=== PATIENT | male | born 1945 | race Caucasian/White ===

== ENCOUNTER 2018-08-02 09:14 | Emergency (ER) | payer MEDICARE, OTHER ==
[~2018-08-02] VITALS: Ht 185.4 cm; Wt 79.4 kg
[~2018-08-02 09:14] MED LIST: HYDCHL25 PO
[2018-08-02] MEDS ORDERED: ATOR20 PO (10:20)
[2018-08-02] MEDS ORDERED: LOSA25 PO (10:20)
[2018-08-02] MEDS ORDERED: FLUO10 PO (10:20)
[2018-08-02] MEDS ORDERED: RIVASTIGMINE1 EAC2 TD (10:20)
[2018-08-02] MEDS ORDERED: Bisoprolol Fumar5 MG PO (10:20)
== END 2018-08-02 11:17 | disposition home or self-care (01) ==
LOC: ER 09:14
DX: R04.0 Epistaxis (principal); I10 Essential (primary) hypertension
CPT/HCPCS: 30901; 99283-25

== ENCOUNTER 2021-08-15 10:04 | Emergency (ER) | payer OTHER, MEDICARE ==
[~2021-08-15] VITALS: Ht 185.4 cm; Wt 68.0 kg
[~2021-08-15 10:04] MED LIST changes: +ATOR20 PO; +Bisoprolol Fumar5 MG PO; +FLUO10 PO; +LOSA25 PO; +RIVASTIGMINE1 EAC2 TD
[2021-08-15] MEDS ORDERED: SEROQUEL100 MG PO (10:42)
[2021-08-15] MEDS ORDERED: QUET100 PO (10:43)
== END 2021-08-15 13:02 | disposition home or self-care (01) ==
LOC: ER 10:04
DX: S80.01XA Contusion of right knee, initial encounter (principal); I10 Essential (primary) hypertension; Z86.73 Personal history of transient ischemic attack (TIA), and cerebral infarction without residual deficits; Z87.891 Personal history of nicotine dependence; Z79.899 Other long term (current) drug therapy; W01.0XXA Fall on same level from slipping, tripping and stumbling without subsequent striking against object, initial encounter
CPT/HCPCS: 73562-RT; 99283-25

== ENCOUNTER 2022-10-17 17:37 | Inpatient (IN) | payer MEDICARE, OTHER ==
[~2022-10-17] VITALS: Ht 182.9 cm; Wt 69.3 kg
[~2022-10-17 17:37] MED LIST changes: +QUET100 PO; +SEROQUEL100 MG PO
[2022-10-17 18:27] LABS: BASOPHILS ABSOLUTE AUTO 0.03 K/mm3 (0.00-0.23); BASOPHILS PERCENT AUTO 0 % (0-2); EOSINOPHILS PERCENT AUTO 0 % (0-6); Hematocrit 48.6 % (37.0-53.0); IMMATURE GRAN ABSOLUTE AUTO 0.04 K/mm3 (0.00-0.10); IMMATURE GRAN PERCENT AUTO 0 % (0-1); LYMPHOCYTES ABSOLUTE AUTO 0.48 K/mm3 (0.84-5.20); LYMPHOCYTES PERCENT AUTO 5 % (21-46); MONOCYTES ABSOLUTE AUTO 0.92 K/mm3 (0.16-1.47); MONOCYTES PERCENT AUTO 9 % (4-13); Mean Corpuscular HGB 28.8 pg (26.0-34.0); Mean Corpuscular HGB Conc 32.9 g/dL (31.5-36.5); Mean Corpuscular Volume 87 fL (80-100); Mean Platelet Volume 10.7 fL (9.1-12.4); NEUTROPHILS ABSOLUTE AUTO 8.66 K/mm3 (1.96-9.15); NEUTROPHILS PERCENT AUTO 86 % (41-73); Platelet Count 178 K/mm3 (150-400); RDW Coefficient Variation 13.5 % (11.7-14.2); RDW Standard Deviation 43.5 fL (35.1-46.3); Red Blood Cell Count 5.56 M/mm3 (4.30-5.90); White Blood Cell Count 10.13 K/mm3 (4.00-11.30)
[2022-10-17 18:38] LABS: International Normalized Ratio 1.05
[2022-10-17 18:56] LABS: Albumin, Blood 3.4 g/dL (3.4-5.0); Albumin/Globulin Ratio 0.8 (0.8-1.8); Bilirubin, Total 1.2 mg/dL (0.1-1.0); Bun/Creatinine Ratio 32.3 (12.0-20.0); Calcium, Blood 8.9 mg/dL (8.5-10.1); Creatinine, Blood 0.9 mg/dL (0.60-1.20); Total Protein, Blood 7.4 g/dL (6.4-8.2)
[2022-10-17 19:00] LABS: Base Excess Venous 5.2 mmol/L; Bicarbonate Venous 28.2 mmol/L (24.0-30.0); pH Blood Venous 7.44 (7.34-7.37)
[2022-10-17 19:05] LABS: Magnesium, Blood 2.1 mg/dL (1.6-2.4)
[2022-10-17 19:07] LABS: Thyroid Stimulating Hormone 1.66 uIU/mL (0.360-4.800)
[2022-10-17 19:16] LABS: Source, Urine Straight Cath
[2022-10-17 19:23] LABS: Appearance, Urine Clear (Clear); Bilirubin, Urine Neg (Neg); Blood, Urine 2+ (Neg); Color, Urine Amber (P-Yellow); Glucose Qualitative, Urine Neg (Neg); Ketones, Urine 3+ (Neg); Leukocyte Esterase, Urine Neg (Neg); Nitrite, Urine Neg (Neg); Protein, Urine 3+ (Neg); Specific Gravity, Urine 1.025 (1.003-1.022); Urobilinogen, Urine 2+ (Normal)
[2022-10-17 19:34] LABS: Amorphous Light (0-Heavy); Bacteria Few /hpf; Red Blood Cells, Urine 0-2 /hpf (0-2); Squamous Epithelial Cells Not Seen /hpf (Few); White Blood Cells, Urine 0-2 /hpf (0-5)
[2022-10-17 19:36] LABS: U Amphetamine Screen Not Detected; U Barbituate Screen Not Detected; U Benzodiazapine Screen Not Detected; U Buprenorphine Screen Not Detected; U Cannabinoids Screen Not Detected; U Cocaine Screen Not Detected; U Methadone Screen Not Detected; U Methamphetamine Screen Not Detected; U Opiates Screen Not Detected; U Oxycodone Screen Not Detected; U Phencyclidine Screen Not Detected; U Propoxyphene Screen Not Detected
[2022-10-17] MEDS ORDERED: Ketoconazole120 ML TOP (21:32)
[2022-10-17] MEDS ORDERED: PAXIL2010 PO (21:32)
[2022-10-17] MEDS ORDERED: PAXLOVID 150-11 EACH PO (21:33)
[2022-10-17] MEDS ORDERED: RISPERIDONE2 M9 PO (21:33)
[2022-10-17] MEDS ORDERED: [UNRECOGNIZED DRUG - OTHER] PO (21:34)
[2022-10-17 23:33] VITALS: BP 159/104
[2022-10-18] VITALS (7 sets, daily range): BP systolic 127–159; BP diastolic 89–113
[2022-10-18 01:14] LABS: Hemoglobin 14.8 g/dL (13.5-17.5); Mean Corpuscular HGB Conc 32.9 g/dL (31.5-36.5); Mean Corpuscular Volume 88 fL (80-100); Mean Platelet Volume 10.9 fL (9.1-12.4); Platelet Count 163 K/mm3 (150-400); RDW Coefficient Variation 13.5 % (11.7-14.2); RDW Standard Deviation 43.9 fL (35.1-46.3); White Blood Cell Count 9.57 K/mm3 (4.00-11.30)
[2022-10-18 01:44] LABS: Albumin, Blood 2.9 g/dL (3.4-5.0); Albumin/Globulin Ratio 0.8 (0.8-1.8); Bilirubin, Total 1.1 mg/dL (0.1-1.0); Calcium, Blood 8.4 mg/dL (8.5-10.1); Creatinine, Blood 0.8 mg/dL (0.60-1.20); Globulin, Blood 3.7 g/dL (2.2-4.0); Magnesium, Blood 1.9 mg/dL (1.6-2.4); Potassium, Blood 3.9 mmol/L (3.5-5.5); Total Protein, Blood 6.6 g/dL (6.4-8.2)
--- NOTE | 2022-10-18 05:58 | NUR ---
SHIFT SUMMARY 77 YR M ADMITTED ON 10/17/22 FOR COVID. DNR. PT IS NOT A&O AND HAS BEEN UNRESPONSIVE TO QUESTIONS OR STIMULI. HIS BREATHING IS LABORED AND LAST RR WAS 30. LUNGS SOUNDS ARE CRACKLY AND WHEEZY. RT WAS CALLED TO EVALUATE PT AND SUGGESTED A NASAL TRUMPET. ORDER WAS OBTAINED AND IT WAS PLACED BY RT. THIS SEEMS TO HAVE HELPED WITH EASE OF BREATHING. BP AND PULSE WERE ELEVATED AND HOSPITALIST WAS CONTACTED. PRN LOPRESSOR WAS GIVEN IV. PT IS INCONTINENT AND IS UNABLE TO USE THE CALL LIGHT FOR ASSISTANCE.
--- NOTE | 2022-10-18 07:30 | NUR ---
ASSUMED CARE OF PATIENT PATIENT RESTING IN BED, APPEARS TO BE SLEEPING. 2.5L O2 IN PALCE VIA NC IN PATIENTS MOUTH D/T MOUTH BREATHING, TO MAINTAIN SATS >94%. NASAL TRUMPET TO LEFT NARE. RESPIRATIONS APPROX 30/MIN CURRENTLY. PATIENT DOES DOES RESPOND TO VERBAL OR PAINFUL STIMULI. NO FAMILY AT BEDSIDE.
--- NOTE | 2022-10-18 09:00 | NUR ---
PATIENT OPENED EYES TO VERBAL STIMULI, NO RESPONSE, HAD BLANK/EMPTY STARE. O2 INCREASED TO 3L TO MAINTAIN O2 SATS >94% PER ORDERS.
--- NOTE | 2022-10-18 10:30 | NUR ---
DR LOPEZ AT BEDSIDE DISCUSSED PATIENTS CURRENT STATE WITH DR LOPEZ. DISCUSSED PATIENT CONTINUES TO BE NONRESPONSIVE ALTHOUGH DID OPEN EYES FOR THIS RN 1 TIME, BUT DOES NOT RESPOND TO ANY STIMUL. DISCUSSED INCREASE IN O2 TO MAINTAIN THE 94% STATED IN ORDERS. NO NEW ORDERS RECEIVED AT THIS TIME.
--- NOTE | 2022-10-18 11:55 | NUR ---
Initial palliative care consult: PC consult received for Kwame. He is a 77 year old gentleman with a history of CVA, vasular dementia and HTN. He was admitted on 10/17/22 from [facility] with Covid. Phone call to Dr. Clark's office who is pt's PCP. They have a POLST on file from 08/2021 that they will send to the hospital. Faxed copy of POLST received. POLST states full code full treatment. Called over to [facility] to get an idea of pt's baseline functioning and to see if they have a POLST that is different than Dr. Clark's office. Spoke with nursing. They have same POLST from 08/2021 on file. Reviewed H&P note which states that conservator elects DNR as pt has verbalized that choice prior. 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 They report that pt is normally very quiet however he easily makes his needs known. He is usually incontinent of urine, continent for bowel movements. He ambulates unassisted by staff or any DME. He is able to feed himself. He was found down on Saturday night. Saturday he tested positive for COVID. Over the past couple days he has mostly spent his time in bed with minimal PO intake. He is minimally responsive according to nursing during this admission. Will plan to contact pt's daughter to see if a new POLST documenting current wishes can be completed.
--- NOTE | 2022-10-18 17:03 | NUR ---
CALL TO MD DENNIS RN NOTIFIED DR LOPEZ REGARDING PATIENTS BLOOD PRESSURE & HEART RATE. DISCUSSED THAT HEART RATE WAS INITIALLY 126 W/ A VS CHECK, SO THIS RN PULLED PRN LOPRESSOR TO GIVE PATIENT. UPON ASSESSMENT AT THAT TIME BEFORE GIVING, HEART RATE WAS SUSTAINING 90'S - 101, THERFORE, DID NOT GIVE THE LOPRESSOR D/T PERAMETERS BEING FOR PULSE >115. BLOOD PRESSURE RECHECK AT THIS TIME REMAINED ELEVATED. DR LOPEZ STATED HE WOULD ENTER ORDERS TO ADDRESS THIS.
--- NOTE | 2022-10-18 18:07 | NUR ---
SHIFT SUMMARY NO ACUTE CHANGES THIS SHIFT. PATIENT REMAINS VERY SOMNOLENT, OPENS EYES OCCASSIONALY TO VERBAL STIMULI. 3.5 L VIA NC T/O SHIFT TO MAINTAIN O2 SATS >94%. CONT PULSE OX IN PALCE. HEART RATE MAINTAINING 80'S-90'S MOST OF SHIFT, SPIKED TO 120'S BUT DID NOT SUSTAIN. HYPERTENSIVE, IV HYDRALAZINE GIVEN PER EMAR WITH GOOD RESPONSE. INCONT, ATTENDS IN PLACE AND CHANGED PRN. TURNED Q2 ALTHOUGH PATIENT WILL MOVE ABOUT IN BED AT TIMES INDEPENDENTLY. CALL LIGHT IN REACH ALTHOUGH PATIENT HAS YET TO DEMONSTRATE USE. WILL REPORT TO ONCOMING RN AT 1900.
[2022-10-19 03:37] VITALS: BP 131/86
[2022-10-19 05:20] LABS: Hematocrit 48.5 % (37.0-53.0); Hemoglobin 15.8 g/dL (13.5-17.5); Mean Corpuscular HGB Conc 32.6 g/dL (31.5-36.5); Mean Corpuscular Volume 89 fL (80-100); Platelet Count 182 K/mm3 (150-400); RDW Coefficient Variation 13.8 % (11.7-14.2); RDW Standard Deviation 44.9 fL (35.1-46.3); Red Blood Cell Count 5.45 M/mm3 (4.30-5.90); White Blood Cell Count 9.72 K/mm3 (4.00-11.30)
--- NOTE | 2022-10-19 05:35 | NUR ---
SHIFT SUMMARY PT LAYING IN BED DURING BEDSIDE ROUNDS, PT HAS NASAL TRUMPET IN LEFT NARE- NC WITH 3.5L O2 IN MOUTH DUE TO MOUTH BREATHING, PT NON VERBAL AT THIS TIME- PT UNABLE TO TAKE SCHEDULED METOPROLOL AT HS DUE TO UNABLE TO FOLLOW DIRECTION, IV INFUSING WITHOUT PROBLEMS, PT REPOSITIONED Q2H- PT MAKES EYE CONTACT - PT NON RESPONSIVE TO QUESTIONS, BED LOW POSITION , CALL LIGHT WITHIN REACH, BED ALARM IN PLACE 0410 PT LEGS OUT OF BED - PT SPOKE AND SAID HE HAD TO GO TO BATHROOM- ASSISTED PT TO BSC - PT SEMI DIRECTABLE, PT UNABLE TO URINATE IN BSC, PT RETURNED TO BED WITH 2 ASSIST, PT DRANK WATER WITHOUT DIFFICULTY, PT REFUSES TO LEAVE NASAL CANULA IN PLACE, PT SATS AT 95% ON RA - SAFETY MEASURES IN PLACE
[2022-10-19 05:51] LABS: Bun/Creatinine Ratio 47.6 (12.0-20.0); Calcium, Blood 9.1 mg/dL (8.5-10.1); Creatinine, Blood 0.71 mg/dL (0.60-1.20)
[2022-10-19 09:00] VITALS: BP 126/82
--- NOTE | 2022-10-19 09:22 | NUR ---
APPETITE GOOD, PT IS EATING WELL WITH ASSISTANCE.
--- NOTE | 2022-10-19 09:27 | NUR ---
PT FOUND WITH NASAL TRUMPET IN HAND @7162. DR NOTIFIED.
[2022-10-19 16:54] VITALS: BP 145/95
--- NOTE | 2022-10-19 17:26 | NUR ---
shift summary- PT A@O X1. PT VERBALIZES WHEN QUESTIONED. SOME SENTENCE USE, SOME MOMENTS OF CONFUSION, POOR HISTORIAN. O2 3L VIA NC, SATS 98-99%, DOES PULL AT TUBE SATS 90-94 WHEN OFF O2, ON EPISODE OF DESAT INTO 70-80 BUT IMPROVED WITH IN 30 SECS WITH 3L O2 APPLIED. INCONTENT. RIDGED BLE. NO COMPLAINT OF PAIN WHEN ASKED. COUGH WET, PRODUCTIVE. EATING WELL BUT COUGHING ON WATER, THICK LIQUIDS PROVIDED, TOLERATES BETTER. AFEBRILE. WILL CONTINUE TO MONITOR. CALL LIGHT, BED ALARM, AND SIDE RAILS UP FOR SAFETY.
--- NOTE | 2022-10-19 18:31 | NUR ---
PT PULLED IV, NOTIFIED WILL CONTINUE TO MONITOR, O2 AND NOTIFY NIGHT RN OF SAID PLAN.
[2022-10-19 20:07] VITALS: BP 135/97
[2022-10-20 03:01] VITALS: BP 127/89
--- NOTE | 2022-10-20 03:49 | NUR ---
SHIFT UNREMARKABLE. PT TOOK 2100 MEDICATIONS WITHOUT DIFFICULTY AND HAS SLEPT THROUGH MOST OF REMAINDER OF SHIFT. CONTINUOUS PULSE OX HAS BEEN RUNNING THROUGHOUT SHIFT. HR HAS A LOT OF VARIANCE, LIKELY RELATED TO NEW A-FIB. PT HAS DENIED PAIN OR DISCOMFORT THROUGHOUT SHIFT. PT DOES NOT SPEAK MUCH BUT APPEARS TO UNDERSTAND QUESTIONS AND DIRECTIONS, OCCASIONALLY RESPONDS VERBALLY (ALTHOUGH VERY SLOWLY). AOX1 THROUGHOUT SHIFT. IS NOT IMPULSIVE AND FOLLOWS COMMANDS. PLEASANT AND COOPERATIVE WITH CARE. BED LOCKED IN LOWEST POSITION. CALL LIGHT LEFT WITHIN REACH.
[2022-10-20 08:01] VITALS: BP 135/99
[2022-10-20 15:53] VITALS: BP 117/87
--- NOTE | 2022-10-20 17:17 | NUR ---
SHIFT SUMMARY PT RESTING QUIETLY AT DURING SHIFT REPORT, BUT AWAKE. PT HAS REMAINED MOSTLY NONVERBAL. PT DID SAY NO TO A COUPLE OF QUESTIONS, BUT MOSTLY WILL JUST LOOK AT YOU AND NOT RESPOND. PT HAS BEEN INCONTINENT THRU OUT THE DAY; ATTENDS CHANGED NEEDED. PT REQUIRES ASSIST WITH ALL MEALS AND PO INTAKE. PT DOES DRINK WELL, IF OFFERED FLUIDS. PT HAS REMAINED ON RM AIR SINCE START OF SHIFT; BIOX >95%. NO S/SX'S OF DISTRESS NOTED. PT HAS MOVED AROUND IN BED SEVERAL TIMES, GETTING LEGS OFF EOB, BUT NOT TRYING TO GET UP. PT'S DAUGHTER IN TO VISIT FOR A WHILE EARLIER THIS AFTERNOON. BED ALARM ON FOR SAFETY. CALL LT IN REACH, BUT UNCLEAR IF PT IS ABLE TO USE. PER REPORT, PT WITH HX OF DEMENTIA, LIVING AT [facility].
[2022-10-20 20:27] VITALS: BP 156/97
[2022-10-21 02:35] VITALS: BP 157/84
--- NOTE | 2022-10-21 05:01 | NUR ---
SUMMARY: NO ACUTE EVENTS OVERNGIHT. PATIENT AOX1. MOSTLY NON VERBAL. AWAKE MOST OF THE NIGHT. TURNED IN BED Q2 HOUR. VSS. PATIENT ON RA. INCONTINENT THROUGHOUT THE NIGHT. PATIENT BREIF CHANGED EVERY 1-2 HOURS THROUGHOUT NIGHT. FREQUENTLY OFFERED PO FLUIDS. BED ALARM ON, CALL LIGHT IN REACH.
[2022-10-21 08:44] VITALS: BP 143/83
[2022-10-21 16:06] VITALS: BP 150/91
--- NOTE | 2022-10-21 17:06 | NUR ---
NO ACUTE CHANGES PT IS AOX1 AND NEEDS REPOSITIONED. PT IS A BIT IMPULSIVE AND DOES NOT USE CALL LIGHT. BED ALARM IS IN PLACE. PT HAS BEEN SAYING SMALL WORDS,BUT HAS NOT TALKED MUCH THIS SHIFT. INCONTENT AT THIS TIME. WILL CONTINUE TO MONITOR.
[2022-10-21 20:08] VITALS: BP 163/84
[2022-10-22 05:35] VITALS: BP 146/99
--- NOTE | 2022-10-22 05:57 | NUR ---
SUMMARY: NO ACUTE EVENTS OVERNGIHT. PATIENT AOX1. MOSTLY NON VERBAL. TURNED IN BED Q2 HOUR. VSS. PATIENT ON RA. INCONTINENT THROUGHOUT THE NIGHT. PATIENT BREIF CHANGED EVERY 1-2 HOURS THROUGHOUT NIGHT. FREQUENTLY OFFERED PO FLUIDS. BED ALARM ON, CALL LIGHT IN REACH.
[2022-10-22 07:58] VITALS: BP 146/74
[2022-10-22] MEDS ORDERED: DECADRON6 M1 PO (12:33)
[2022-10-22] MEDS ORDERED: METO25ER PO (12:34)
[2022-10-22 16:04] VITALS: BP 127/81
--- NOTE | 2022-10-22 17:56 | NUR ---
PT AOX1 PT HAS BEEN IN BED MOST OF THE DAY. IS EATING BETTER COOPERATING AT THIS TIME. PHYSICAL THERAPY WORKED WITH PT AND WAS ABLE TO GET PT UP IN CHAIR. PT IS IMPULSIVE AT TIMES AND CHAIR ALARM IS IN PLACE. WILL CONTINUE TO MONITOR.
[2022-10-22 19:51] VITALS: BP 128/86
[2022-10-23 04:59] VITALS: BP 146/88
--- NOTE | 2022-10-23 05:08 | NUR ---
HYBRID TESTER SUMMARY VSS. REPOSITIONED EVERY 2 HRS, BRIEF CHECKED AND CHANGED NEEDED. NOTED SOME AREAS OF BONY PROMINENCES WERE RED, - I.E. HEELS, ETC, WERE COVERED WITH PROTECTIVE DRESSINGS. INTERMITTENT FIST CLENCHING AND LABILE AFFECT. ISOLATION PRECAUTIONS MAINTAINED. CALL LIGHT IN REACH. RAILS UP X 3. WILL CONTINUE TO MONITOR.
[2022-10-23 07:26] VITALS: BP 130/81
--- NOTE | 2022-10-23 13:14 | NUR ---
DISCHARGE NOTE: PT DRESSED AND PERSONAL BELONGINGS PACKED BY [employer]. PT RECEVIED LUNCH BEFORE TRANSPORT ARRIVED. TRANSPORT ARRIVED 1305, PT TRASNFERED INTO WC BY ARCHITECTURAL INSPECTOR AND DISTRICT SERVICE MANAGER. TRANSPORT RECVEVIED DISCHARGE PACKET AND FACESHEET. PT TRANSPORT VIA TO [facility] BY TRANSPORT TO [facility].
== END 2022-10-23 13:12 | disposition home or self-care (01) | DRG 177 ==
LOC: ER 17:37 → MEDS 17:38
PROVIDERS: Emergency Medicine; Internal Medicine; Nurse Practitioner Acute Care; Student in an Organized Health Care Education/Training Program; ADMIT Internal Medicine
PROC: XW033E5 Introduction of Remdesivir Anti-infective into Peripheral Vein, Percutaneous Approach, New Technology Group 5 (ICD-10-PCS; principal; 2022-10-18)
PROC: 3E0333Z Introduction of Anti-inflammatory into Peripheral Vein, Percutaneous Approach (ICD-10-PCS; 2022-10-18)
PROC: 8E0ZXY6 Isolation (ICD-10-PCS; 2022-10-18)
DX: U07.1 COVID-19 (principal); G92.8 Other toxic encephalopathy; J96.01 Acute respiratory failure with hypoxia; I48.91 Unspecified atrial fibrillation; I67.9 Cerebrovascular disease, unspecified; F01.C0 Vascular dementia, severe, without behavioral disturbance, psychotic disturbance, mood disturbance, and anxiety; Z66 Do not resuscitate; E86.0 Dehydration; G47.33 Obstructive sleep apnea (adult) (pediatric); G30.9 Alzheimer's disease, unspecified; F02.C0 Dementia in other diseases classified elsewhere, severe, without behavioral disturbance, psychotic disturbance, mood disturbance, and anxiety; C76.0 Malignant neoplasm of head, face and neck; R77.8 Other specified abnormalities of plasma proteins; I10 Essential (primary) hypertension; Z86.73 Personal history of transient ischemic attack (TIA), and cerebral infarction without residual deficits; Z98.890 Other specified postprocedural states; Z87.891 Personal history of nicotine dependence
CPT/HCPCS: 36415; 51701; 70450; 71045; 80048; 80053; 81001; 82803; 82947; 83605; 83735; 84443; 84484; 85025; 85027; 85379; 85610; 93005; 93010; 93306; 94760; 94762; 96360-59; 96361-59; 96372; 96374; 96375; 96376; 97116; 97162; 99285-25; A9270; G0378; J0248; J0360; J1100; J1650; J7030; J7050; J7120